=== PATIENT | female | born 1960 | race Caucasian/White ===

== ENCOUNTER → 2019-06-10 13:32 | Outpatient (CLI) | payer BC, MEDICARE, SELFPAY ==
--- NOTE | 2019-06-10 14:07 | RAD_ITS ---
STUDY: X-RAY - LUMBAR SPINE REASON FOR EXAM: Female, 58 years old. Low back pain. Previous surgeries. TECHNIQUE: 3 view(s) of the lumbar spine were obtained. COMPARISON: None FINDINGS: There is straightening of the normal lumbar lordosis. There is no substantial scoliosis. There is a normal alignment of the vertebrae. Postsurgical changes of surgical fusion with interpedicular screws and posterior rods between L3 and L4. Previous discectomy at L3-L4. Moderate to severe multilevel changes throughout the rest of the lumbar spine especially at L4-L5. RAD/Lumbar Spine 2 or 3 Views IMPRESSION: Postsurgical changes with no evidence of surgical complication. Moderate to severe multilevel degenerative changes. Electronically Signed: Dhaval Broderick MD at 16:50 EST , Service support ,
[2019-06-10 14:29] LABS: Amphetamine Urine VISTA NEGATIVE (<1000 ng/mL); Barbiturate Urine VISTA NEGATIVE (< 200 ng/mL); Benzodiazepine Urine VISTA NEGATIVE (< 200 ng/mL); Cocaine Urine VISTA NEGATIVE (< 300 ng/mL); Ecstacy Urine VISTA NEGATIVE (< 500 ng/mL); Methadone Urine VISTA NEGATIVE (< 300 ng/mL); PCP Urine VISTA NEGATIVE (< 25 ng/mL); THC Urine VISTA NEGATIVE (< 50 ng/mL); Vista UDS pH Range 6
== END ==
PROVIDERS: Referring Provider Anesthesiology Pain Medicine; Visit Provider Anesthesiology Pain Medicine
DX: F11.20 Opioid dependence, uncomplicated (principal); M54.9 Dorsalgia, unspecified
CPT/HCPCS: 72100; 80307